=== PATIENT | female | born 1960 | race Caucasian/White ===

== ENCOUNTER 2018-07-21 13:23 | Emergency (ER) | payer OTHER ==
[~2018-07-21] VITALS: Ht 167.6 cm; Wt 71.0 kg
[2018-07-21 13:27] VITALS: BP 120/84
[2018-07-21] MEDS ORDERED: LIDOcaine 1.5% w/epinephrine 1:200,000 5ml ampul IJ ONE (13:50)
== END 2018-07-21 15:02 | disposition home or self-care (01) ==
LOC: ER 13:24
DX: S01.81XA Laceration without foreign body of other part of head, initial encounter (principal); W01.0XXA Fall on same level from slipping, tripping and stumbling without subsequent striking against object, initial encounter; Y93.89 Activity, other specified; Y92.89 Other specified places as the place of occurrence of the external cause; Y99.8 Other external cause status
CPT/HCPCS: 12011; 99284; A6449; J3490

== ENCOUNTER 2020-08-18 12:40 | Outpatient (CLI) | payer MEDICAID ==
[~2020-08-18 12:40] MED LIST: BARIUM SULFATE 340 ML SUSP.RECON***PROCEDURE AREA ONLY**DONT ENTER PO ONE
== END 2020-08-18 23:59 | disposition home or self-care (01) ==
LOC: RAD 12:40
DX: R13.12 Dysphagia, oropharyngeal phase (principal); Z85.89 Personal history of malignant neoplasm of other organs and systems
CPT/HCPCS: 74230

== ENCOUNTER 2021-06-27 10:04 | Emergency (ER) | payer MEDICAID ==
[~2021-06-27] VITALS: Ht 167.6 cm; Wt 72.9 kg
[2021-06-27 11:37] LABS: CLARITY,URINE CLOUDY (Clear); COLOR,URINE YELLOW (Yellow); GLUCOSE, URINE NEGATIVE (Neg); KETONES,URINE NEGATIVE (Neg); LEUKOCYTE ESTERASE ,URINE SMALL (Neg); NITRITES, URINE NEGATIVE (Neg); OCCULT BLOOD,URINE SMALL (Neg); PH,URINE 6.5 (4.8-8.0); PROTEIN,URINE TRACE mg/dl (Neg)
[2021-06-27 11:51] LABS: UA COLLECTION TYPE CLN CATCH MIDSTREAM
[2021-06-27 11:54] LABS: RBC,URINE 0-2 /HPF (0-2); WBC,URINE 0-4 /HPF (0-4)
[2021-06-27 11:55] LABS: AMORPHOUS URATES 2+; BACTERIA,URINE 1+ /HPF (Neg); HYALINE CASTS 0-3 /LPF (NEGATIVE); MUCUS STRANDS FEW /LPF (Neg); SQUAMOUS EPITHELIAL CELL,UR MANY /LPF (FEW)
[2021-06-27 12:01] LABS: ALANINE AMINOTRANSFERASE 23 U/L (12-78); ALBUMIN 3.7 G/DL (3.4-5.0); ALBUMIN/GLOBULIN RATIO 0.9 (1.1-1.5); ALKALINE PHOSPHATASE 106 IU/L (46-116); ANION GAP 6 (8-16); ASPARTATE AMINO TRANSFERASE 18 U/L (10-37); BLOOD UREA NITROGEN 18 MG/DL (7-18); BUN/CREATININE RATIO 15.8 (6.6-38.0); CALCIUM 9.6 MG/DL (8.5-10.1); CHLORIDE 106 MMOL/L (99-107); CREATININE 1.14 MG/DL (0.40-0.90); GLUCOSE 145 MG/DL (70-104); POTASSIUM 3.6 MMOL/L (3.5-5.1); SODIUM 142 MMOL/L (135-145); TOTAL CARBON DIOXIDE 30.1 MMOL/L (24-32); TOTAL PROTEIN 7.8 G/DL (6.4-8.2); eGFR 48 ML/MIN
[2021-06-27 12:27] LABS: BASOPHILS % (AUTO) 0.5 % (0-1); EOSINOPHILS # (AUTO) 0.1 X10'3 (0-0.9); EOSINOPHILS % (AUTO) 2.2 % (0-6); HEMATOCRIT 45.1 % (35.0-45.0); HEMOGLOBIN 14.8 g/dl (12.0-16.0); LYMPHOCYTES # (AUTO) 0.6 X10'3 (1.1-4.8); LYMPHOCYTES % (AUTO) 10.7 % (21-51); MEAN CORPUSCULAR HEMOGLOBIN 30.3 PG (27.0-31.0); MEAN CORPUSCULAR HGB CONC 32.9 g/dL (33.0-36.5); MEAN CORPUSCULAR VOLUME 92.1 FL (78-98); MEAN PLATELET VOLUME 8.4 FL (7.4-10.4); MONOCYTES # (AUTO) 0.7 X10'3 (0-0.9); MONOCYTES % (AUTO) 11.6 % (2-12); NEUTROPHILS # (AUTO) 4.2 X10'3 (1.8-7.7); PLATELET COUNT 255 X10'3 (140-440); RED BLOOD COUNT 4.89 X10'6 (4.20-5.60)
[2021-06-27 12:28] LABS: WHITE BLOOD COUNT 5.7 X10'3 (4.5-11.0)
[2021-06-27] MEDS ORDERED: iohexol 300mg/ml 100ml inj. ONE (14:32)
[2021-06-27] MEDS ORDERED: ondansetron/PF 4mg/2ml inj IV ONE (14:50)
[2021-06-27] MEDS ORDERED: morphine 4 MG/ML inj SYRINge IV ONE (14:50)
[2021-06-27] MEDS ORDERED: HYDR-3965 PO (15:40)
[2021-06-27] MEDS ORDERED: ONDA4TAB6 PO (15:40)
[2021-06-27 16:28] VITALS: BP 156/111
== END 2021-06-27 16:33 | disposition home or self-care (01) ==
LOC: ER 10:06
DX: R10.31 Right lower quadrant pain (principal); R10.32 Left lower quadrant pain; K86.9 Disease of pancreas, unspecified; Z90.49 Acquired absence of other specified parts of digestive tract; Z79.899 Other long term (current) drug therapy
CPT/HCPCS: 36415; 74177; 80053; 81001; 85025; 96374; 96375; 99285; J2270; J2405; Q9967

== ENCOUNTER 2021-07-02 08:08 | Emergency (ER) | payer MEDICAID ==
[~2021-07-02] VITALS: Ht 167.6 cm; Wt 74.5 kg
[~2021-07-02 08:08] MED LIST changes: -BARIUM SULFATE 340 ML SUSP.RECON***PROCEDURE AREA ONLY**DONT ENTER PO ONE; +HYDR-3965 PO; +ONDA4TAB6 PO
[2021-07-02 13:50] VITALS: BP 147/121
== END 2021-07-02 22:00 | disposition left against medical advice (07) ==
LOC: ER 08:08
DX: N93.9 Abnormal uterine and vaginal bleeding, unspecified (principal); Z79.899 Other long term (current) drug therapy
CPT/HCPCS: 99281

== ENCOUNTER 2021-07-11 06:38 | Day surgery (SDC) | payer MEDICAID ==
[~2021-07-11] VITALS: Ht 167.6 cm; Wt 75.0 kg
[~2021-07-11 06:38] MED LIST changes: -HYDR-3965 PO
[2021-07-11] MEDS ORDERED: normal saline 1000ml 1,000 ML IV PRN (07:10)
[2021-07-11 07:21] VITALS: BP 136/89
[2021-07-11] MEDS ORDERED: LISI-642 PO (07:26)
[2021-07-11] MEDS ORDERED: METO50TA16 PO (07:26)
[2021-07-11] MEDS ORDERED: ATOR20TA PO (07:26)
[2021-07-11] MEDS ORDERED: AMLO10TA48 PO (07:26)
[2021-07-11 08:46] LABS: BASOPHILS % (AUTO) 0.5 % (0-1); EOSINOPHILS # (AUTO) 0.2 X10'3 (0-0.9); EOSINOPHILS % (AUTO) 3.7 % (0-6); HEMATOCRIT 36.4 % (35.0-45.0); HEMOGLOBIN 12.3 g/dl (12.0-16.0); LYMPHOCYTES # (AUTO) 0.5 X10'3 (1.1-4.8); LYMPHOCYTES % (AUTO) 12.1 % (21-51); MEAN CORPUSCULAR HEMOGLOBIN 32.3 PG (27.0-31.0); MEAN CORPUSCULAR HGB CONC 33.7 g/dL (33.0-36.5); MEAN CORPUSCULAR VOLUME 95.7 FL (78-98); MEAN PLATELET VOLUME 8.1 FL (7.4-10.4); MONOCYTES # (AUTO) 0.5 X10'3 (0-0.9); MONOCYTES % (AUTO) 11.4 % (2-12); NEUTROPHILS # (AUTO) 3.2 X10'3 (1.8-7.7); NEUTROPHILS % (AUTO) 72.3 % (42-75); PLATELET COUNT 241 X10'3 (140-440); RED BLOOD COUNT 3.81 X10'6 (4.20-5.60); RED CELL DISTRIBUTION WIDTH 14.3 % (11.5-14.5); WHITE BLOOD COUNT 4.4 X10'3 (4.5-11.0)
[2021-07-11 09:15] VITALS: BP 155/94
[2021-07-11 09:30] VITALS: BP 158/98
[2021-07-11 09:45] VITALS: BP 154/93
--- NOTE | 2021-07-11 09:45 | NUR ---
MD Lozano called, pt can DC now.
[2021-07-11] MEDS ORDERED: normal saline 1000ml 1,000 ML IV SCH (09:55)
[2021-07-11 10:00] VITALS: BP 160/96
--- NOTE | 2021-07-11 10:02 | NUR ---
Pt states her BP is followed up by her PCP. She was recommended to take her medication as ordered and contact her PCP if her BP remained elevated. Pt states her BP fluctuates between 140s-160s at home. Pt denies cp, palpitations, sob w/ activity.
== END 2021-07-11 10:15 | disposition home or self-care (01) ==
LOC: SSTAY O 06:38
PROVIDERS: ATTEND Radiology Diagnostic Radiology
DX: C09.9 Malignant neoplasm of tonsil, unspecified (principal); E78.5 Hyperlipidemia, unspecified; I10 Essential (primary) hypertension; E11.9 Type 2 diabetes mellitus without complications; Z98.1 Arthrodesis status; Z90.49 Acquired absence of other specified parts of digestive tract; Z93.1 Gastrostomy status; Z79.899 Other long term (current) drug therapy
CPT/HCPCS: 10005; 10007; 85025